=== PATIENT | female | born 1945 | race Caucasian/White ===

== ENCOUNTER 2018-09-13 06:03 | Day surgery (SDC) | payer MEDICARE ==
[~2018-09-13] VITALS: Ht 149.9 cm; Wt 57.6 kg
[~2018-09-13 06:03] MED LIST: ASPI-496 PO; FLUT1DIS IH; LEVO100T PO; LORA10CA PO; METH750T87 PO; [UNRECOGNIZED DRUG - OTHER]; flonase
--- NOTE | 2018-09-13 06:18 | NUR ---
BILATERAL LOWER ABD PAIN. I WAS SEEN BY PRIMARY DOCTOR. SHE PUT ME ON CIPRO AND METRONIDAZOLE. PT REPORTS SHE NOW HAS LOOSE STOOL PER TRIAGE NOTE
--- NOTE | 2018-09-13 06:18 | NUR ---
PT WALKED IN THE RM WITH WITH STABLE GAIT
--- NOTE | 2018-09-13 06:25 | NUR ---
BP IS SLIGHTLY UP PT STATED PT IS ON PO ABX FOR 5 DAYS NOW
[2018-09-13] MEDS ORDERED: SODIUM CHLORIDE FLUSH 10ML SYR IVF ONE (06:30)
[2018-09-13 06:54] LABS: BASOPHILS # (AUTO) 0.03 x10^3/uL (0-0.1); BASOPHILS % (AUTO) 1 % (0-1); EOSINOPHILS # (AUTO) 0.22 x10^3/uL (0-0.4); EOSINOPHILS % (AUTO) 4 % (1-7); LYMPHOCYTES # (AUTO) 1.06 x10^3/uL (1-3.4); LYMPHOCYTES % (AUTO) 19 % (22-44); MD NO; MEAN CORPUSCULAR HEMOGLOBIN 30.5 pg (27.0-34.8); MEAN CORPUSCULAR HGB CONC 33.3 g/dL (32.4-35.8); MEAN CORPUSCULAR VOLUME 91.6 fL (80-100); MEAN PLATELET VOLUME 7.8 fL (7.4-10.4); MONOCYTES # (AUTO) 0.32 x10^3/uL (0.2-0.8); MONOCYTES % (AUTO) 6 % (2-9); NEUTROPHILS # (AUTO) 3.92 x10^3/uL (1.8-6.8); NEUTROPHILS % (AUTO) 71 % (42-75); PLATELET COUNT 353 x10^3/uL (130-400); RED BLOOD COUNT 4.99 x10^6/uL (3.82-5.3); RED CELL DISTRIBUTION WIDTH 14.3 % (9.6-15.2)
[2018-09-13 07:07] LABS: ALANINE AMINOTRANSFERASE 31 U/L (12-78); ALBUMIN 3.9 g/dL (3.4-5.0); ANION GAP 6 mmol/L (5-15); CALCIUM 9.7 mg/dL (8.5-10.1); CHLORIDE 106 mmol/L (98-107); CREATININE 0.77 mg/dL (0.55-1.02)
[2018-09-13 07:10] LABS: ALKALINE PHOSPHATASE 80 U/L (45-117); BILIRUBIN,TOTAL 0.3 mg/dL (0.2-1.0); TOTAL PROTEIN 7.2 g/dL (6.4-8.2)
--- NOTE | 2018-09-13 07:10 | NUR ---
BEDSIDE REPORT BY CINTHYA PIERRE, PT IN [facility] PLACED ON [address]. PT EDUCATED ON NEED FOR STOOL AND URINE SAMPLE, PT STATES SHE WILL TRY AND GO WHEN SHE GETS BACK FROM [place].
[2018-09-13] MEDS ORDERED: OMNIPAQUE 350 MG/ML, 100ML BOTTLE ONE (07:33)
[2018-09-13] MEDS ORDERED: CEFOTETAN PMX 1GM/50ML 50 ML ONE (07:58)
[2018-09-13] MEDS ORDERED: CEFOTETAN PMX 1GM/50ML 50 ML IV ONE (08:00)
[2018-09-13 08:02] LABS: MICROSCOPIC NOT IND
[2018-09-13 08:07] LABS: CULTURE INDICATED? NO
[2018-09-13] MEDS ORDERED: POTASSIUM CHLORIDE 20 MEQ in D5%-0.45% NACL 1,000 ML IV ONE (08:21)
[2018-09-13] MEDS ORDERED: SODIUM CHLORIDE FLUSH 10ML SYR IVF PRN (08:30)
[2018-09-13] MEDS ORDERED: ONDANSETRON 2MG/ML, 2ML IVPush PRN (08:30)
[2018-09-13] MEDS ORDERED: HYDROmorphone 1 MG/ML, 1ML IVPush PRN (08:30)
--- NOTE | 2018-09-13 08:35 | NUR ---
REPORT GIVEN TO RN RM 441, PT UPDATED ON POC
--- NOTE | 2018-09-13 08:46 | NUR ---
PT.'S IV FLUIDS ARE INFUSING ON THE PUMP AT THIS TIME. VITALS MONITORED AND THE PT. REMAINS NPO.
[2018-09-13 08:47] LABS: CLOSTRIDIUM DIFFICILE ANTIGEN NEGATIVE; CLOSTRIDIUM DIFFICILE TOXIN NEGATIVE (Negative)
[2018-09-13 09:36] VITALS: BP 159/89
[2018-09-13] MEDS ORDERED: FENTANYL PF 100 MCG/2ML ONE ×2 (11:18→13:07)
[2018-09-13] MEDS ORDERED: BUPIVACAINE/PF-EPI 0.5% 1:200K ONE (11:51)
[2018-09-13] MEDS ORDERED: METOCLOPRAMIDE 5 MG/ML, 2ML ONE (12:24)
[2018-09-13] MEDS ORDERED: ONDANSETRON 2MG/ML, 2ML ONE (12:24)
[2018-09-13] MEDS ORDERED: KETOROLAC 30 MG/1 ML ONE (12:24)
[2018-09-13] MEDS ORDERED: PROPOFOL 10 MG/ML, 20ML ONE (12:24)
[2018-09-13] MEDS ORDERED: ROCURONIUM 10MG/ML,5ML ONE (12:24)
[2018-09-13] MEDS ORDERED: DEXAMETHASONE 4 MG/ML, 1ML ONE (12:24)
[2018-09-13] MEDS ORDERED: NEOSTIGMINE 1 MG/ML, 10ML ONE (12:24)
[2018-09-13] MEDS ORDERED: GLYCOPYRROLATE 0.2MG/1ML, 5ML ONE (12:24)
[2018-09-13] MEDS ORDERED: CEFAZOLIN 1,000 MG ONE (12:24)
[2018-09-13] MEDS ORDERED: MIDAZOLAM 1 MG/ML, 2ML IV PRN (12:30)
[2018-09-13] MEDS ORDERED: PROMETHAZINE 25 MG/ML, 1ML IV PRN (12:30)
[2018-09-13] MEDS ORDERED: OXYcodone 5 MG/5 ML ORAL.SOL UDC PO PRN (12:30)
[2018-09-13] MEDS ORDERED: ALBUTEROL/IPRATROPIUM 2.5MG/0.5MG, 3 ML NPPB PRN (12:30)
[2018-09-13] MEDS ORDERED: MEPERIDINE/PF 25MG/0.5ML IVPush PRN (12:30)
[2018-09-13] MEDS ORDERED: ACETAMINOPHEN 325 MG TABLET PO PRN (12:30)
[2018-09-13] MEDS ORDERED: FENTANYL PF 100 MCG/2ML IV PRN (12:30)
[2018-09-13] MEDS ORDERED: HYDROmorphone 2 MG/ML, 1ML IVPush PRN (12:30)
[2018-09-13] MEDS ORDERED: ONDANSETRON 2MG/ML, 2ML IV PRN (12:30)
[2018-09-13] MEDS ORDERED: SCOPOLAMINE PATCH, 1.5MG PATCH.TD72 TD PRN (12:30)
[2018-09-13] MEDS ORDERED: OXYcodone 5 MG/5 ML ORAL.SOL UDC ONE (12:41)
[2018-09-13 13:58] VITALS: BP 140/79
[2018-09-13] MEDS ORDERED: METHOCARBAMOL 750 MG TABLET PO PRN (14:00)
[2018-09-13] MEDS ORDERED: LACTATED RINGERS 1,000 ML IV SCH (14:00)
[2018-09-13] MEDS ORDERED: ALBUTEROL SULFATE 2.5 MG/3 ML NPPB SCH (14:00)
[2018-09-13] MEDS ORDERED: HYDROcodone/APAP 5/325 TABLET PO PRN (14:00)
[2018-09-13] MEDS ORDERED: HYDR-3240 PO (17:28)
[2018-09-13] MEDS ORDERED: BUDESONIDE 0.5 MG/2 ML INHA NPPB SCH (21:00)
[2018-09-14] MEDS ORDERED: LEVOTHYROXINE 100 MCG TABLET PO SCH (06:00)
[2018-09-14] MEDS ORDERED: FLUTICASONE NASAL SPRAY 16GM NAS SCH (09:00)
== END 2018-09-13 19:09 | disposition home or self-care (01) ==
LOC: ED 06:18 → UNDOADMIN 08:21 → EDIP 08:21 → 4NOR 09:25 → EDIP 09:25 → OR 11:55 → UNDODISIN 19:09 → OR 19:09
PROVIDERS: ATTEND Emergency Medicine
DX: K35.80 Unspecified acute appendicitis (principal); E03.9 Hypothyroidism, unspecified; J45.909 Unspecified asthma, uncomplicated; Z98.890 Other specified postprocedural states; Z72.89 Other problems related to lifestyle
CPT/HCPCS: 36415; 44970; 74177; 80053; 81003; 83605; 83690; 85025; 87324; 88304; 89055; 93005; 96374; 99285; C1729; J0690; J1100; J1885; J2405; J2704; J2710; J2765; J3010; J3480; J3490; J7120; Q9967; G0378